=== PATIENT | male | born 2000 | race Hispanic/Latino ===

== ENCOUNTER 2024-07-05 01:08 | Emergency (ER) | payer BC ==
[~2024-07-05] VITALS: Ht 177.8 cm; Wt 138.3 kg
--- NOTE | 2024-07-05 01:31 | ERN ---
ED Note History of Present Illness Stated Complaint: RASH Chief Complaint: Skin Rash/Abscess Time Seen by MD: 01:13 Time Seen by Midlevel: 01:13 Dictation: 23-year-old male who presents to the emergency department due to report of having a generalized rash along with itching that began 2 days ago. At this time, he can not recall what could have been the trigger. Currently, he denies having any difficulty breathing or difficulty swallowing. Upon initial evaluation, the patient presents in no acute distress. Allergies: Coded Allergies: No Known Drug Allergies (Unverified Allergy, Unknown, 07/05/24) Emergency Care [employer]FORMATION [employer]: None Past Medical History Past Medical History: No Pertinent History Surgical History: None PSYCH History: no pertinent psych hx Social History: Lives with family RN Note Reviewed/Agreed w/PFSH: Yes Review of System Dictation Skin: Diffuse rash Initial Vital Sign VS Vital Signs Date Time Temp Pulse Resp B/P (MAP) Pulse Ox O2 Delivery O2 Flow Rate FiO2 07/05/24 01:10 98.1 101 17 141/86 97 Room Air 0 Physical Exam Dictation General: awake, alert, NAD Head/Face: Normocephalic, atraumatic Eyes: PERRL, EOMI ENT: Oral mucosa moist Neck: Trachea midline, supple Cardiovascular: RRR, no edema Respiratory: Symmetrical, non-labored Abdomen: Soft, non-tender, non-distended, no guarding. Skin: Warm, dry, good turgor, diffuse urticarial well-demarcated blanching rash MS/Extremity: Pulses equal, no cyanosis, neurovascular intact, FROM Neuro: COAx4, GCS 15, steady gait, Psych: Normal behavior, mood, and affect normal ED Course ED Course Orders Procedure Category Date Status Time Diphenhydramine Hcl PHA 07/05/24 Complete (Benadryl Inj) 01:30 Dexamethasone 4mg/Ml PHA 07/05/24 Complete 1ml Vial (Dexametha 01:30 Current Medications Medications (Trade) Dose Ordered Sig/Zi Route PRN Reason Start Time Stop Time Status Last Admin Dose Admin Dexamethasone Sodium Phosphate (dexaMETHasone 4MG/ML 1ML VIAL) 8 mg ONCE ONCE IM 07/05/24 01:30 07/05/24 01:31 DC Diphenhydramine HCl (BENAdryl INJ) 25 mg ONCE ONCE IM 07/05/24 01:30 07/05/24 01:31 DC Vital Signs Date Time Temp Pulse Resp B/P (MAP) Pulse Ox O2 Delivery O2 Flow Rate FiO2 07/05/24 01:10 98.1 101 17 141/86 97 Room Air 0 Medical Decision Making MDM MDM: Differential diagnosis: Urticarial rash, acute allergic reaction, contact dermatitis. Rationale: Tests considered and ordered secondary to shared decision making include: Previous outside records reviewed: Old ER visits. Risk of complication and/or morbidity or mortality of patient management: None Medications-Per medication reconciliation Need for hospitalization: Patient does not meet criteria for hospitalization. Need for emergency major/minor surgery: No There are no social concerns with this patient. Prescription drug management Prescriptions will include symptomatic care Patient's prior external medical records from other ER visits were reviewed by me as indicated. Prior testing and results from previous visits were reviewed. Prior tests were taken into account with medical decision making and resource utilization, independent historian/historians were used to obtain complete medical history. I independently interpreted the test that were performed, results were reviewed by me and considered findings on radiology if ordered. Medical management and examination interpretation discussions were had by me with other qualified healthcare professionals as indicated for the patient's care. DX & DISP Disposition: Discharge Departure Impression: Primary Impression: Acute allergic reaction Condition: Stable Referrals: NONE (PCP) Time of Disposition: 02:27 LAURA KERR Jul 05, 2024 01:31
[2024-07-05] MEDS ORDERED: PRED20TA3 PO (02:29)
[2024-07-05] MEDS ORDERED: DIPH50 PO (02:29)
[2024-07-05] MEDS: DiphenhydrAMINE HCL 50 MG/ML VIAL IM ONE (02:31)
[2024-07-05] MEDS: dexaMETHasone SOD PHOSPHATE 4 MG/ML 1ML VIAL IM ONE (02:33)
[2024-07-05 02:44] VITALS: BP 132/74; PULSE 79; RESP 18; TEMP 98.5; O2SAT 98
== END 2024-07-05 02:41 | disposition home or self-care (01) ==
LOC: EDH 01:08
DX: T78.40XA Allergy, unspecified, initial encounter (principal); X58.XXXA Exposure to other specified factors, initial encounter
CPT/HCPCS: 99284; 96372 ×2; J1100; J1200